=== PATIENT | female | born 1985 | race Caucasian/White ===

== ENCOUNTER 2019-12-04 13:42 | Emergency (ER) | payer SELFPAY ==
[~2019-12-04] VITALS: Ht 172.7 cm; Wt 77.1 kg
--- OUTSIDE RECORDS SUMMARY | ~2019-12-04 | XMS | Continuity of Care Document ---
Demographics + + + | Address | [address] | | | [place] [address] | + + + | Home Phone | | + + + | Preferred Language | Unknown | + + + | Marital Status | Unknown | + + + | Anglican Affiliation | Unknown | + + + | Race | Unknown | + + + | Ethnic Group | Unknown | + + + Author + + + | Author | [facility] | + + + | Organization | [facility] | + + + | Address | Unknown | + + + | Phone | Unavailable | + + + Support + + + + + | Name | Relationship | Address | Phone | + + + + + | Angelica Call | Caregiver | [address] | | | | | [place] [address] | | + + + + + | NO PCP | Caregiver | Unknown | Unavailable | + + + + + | HIRO ZAVALA | Next Of Kin | [address] 1989 | | | | | [place], [place] [address] | | + + + + + Care Team Providers + + + + | Care Web Weaver Name | Role | Phone | + + + + | NO PCP | Unavailable | Unavailable | + + + + Insurance Providers + + + + + | Payer Name | Policy Number | Subscriber Name | Relationship | + + + + + | [employer] | [id number] | JUNE ZAVALA | SAME PATIENT | + + + + + | [place] | [id number] | JUNEJR LINNSHANKAR | SAME PATIENT | | SIMON | | | | + + + + + Chief Complaint and Reason for Visit + + + | Reason for Visit | TOOTH PAIN | + + + Problems No problem information available. Medications Current Home Medications + +------+-------+-------+ + + + + | Medicati | Dose | Units | Route | Directio | Days/Qty | Instruct | Start | | on | | | | ns | | ions | Date | + +------+-------+-------+ + + + + | | | | | | | | | | CONTROL | | | | | | | | | PILL | | | | | | | | + +------+-------+-------+ + + + + | Penicill | 500 | MG | ORAL | FOUR | 10 Days | | 12/04/17 | | in V | | | | TIMES | | | | | Potassiu | | | | DAILY | | | | | m 500 MG | | | | | | | | | TABLET | | | | | | | | + +------+-------+-------+ + + + + | Venlafax | | | | | | | | | ine Hcl | | | | | | | | | (Effexor | | | | | | | | | ) 25 MG | | | | | | | | | TABLET | | | | | | | | + +------+-------+-------+ + + + + Past Home Medications + + + + + | Medication | Directions | Ordered | Status | + + + + + | Acetaminophen | | Unknown | Discontinued | | (Acetaminophen | | | | | Extra Strength) 500 | | | | | Mg Tablet Tablet, | | | | | 500-1,000 Mg Oral | | | | + + + + + | Acetaminophen With | TWICE DAILY | 06/09/11 | Discontinued | | Codeine | NEEDED | | | | (Acetaminophen-Cod | | | | | #3 Tablet) 1 Each | | | | | Tablet Tablet, 1 | | | | | Each Oral | | | | + + + + + | Bupropion Hcl | ONCE DAILY | Unknown | Discontinued | | (Wellbutrin Sr) 150 | | | | | Mg Tablet.sa | | | | | Tablet.sa, 150 Mg | | | | | Oral | | | | + + + + + | Ciprofloxacin Hcl | TWICE DAILY | Unknown | Discontinued | | 500 Mg , 500 Mg | | | | | Oral | | | | + + + + + | Citalopram | ONCE DAILY | Unknown | Discontinued | | Hydrobromide | | | | | (Celexa) 20 Mg | | | | | Tablet Tablet, 20 | | | | | Mg Oral | | | | + + + + + | Disulfiram | | Unknown | Discontinued | | (Antabuse) 250 Mg | | | | | Tablet Tablet, 250 | | | | | Mg Oral | | | | + + + + + | Fluoxetine Hcl | ONCE DAILY | Unknown | Discontinued | | (Prozac) 10 Mg | | | | | Capsule Capsule, 10 | | | | | Mg Oral | | | | + + + + + | Hydrocodone | EVERY 6 HOURS | 04/12/10 | Discontinued | | Bit/Acetaminophen | NEEDED. | | | | (Hydrocodone-Apap | | | | | 5-500 Tablet) 1 | | | | | Each Tablet Tablet, | | | | | 1-2 Tab Oral | | | | + + + + + | Hydrocodone | Q4 - 6H | Unknown | Discontinued | | Bit/Acetaminophen | | | | | (Hydrocodone/Apap | | | | | 5/325 Mg) 1 Each | | | | | Tablet Tablet, 1 Ea | | | | | Oral | | | | + + + + + | Hydrocodone | | Unknown | Discontinued | | Bit/Acetaminophen | | | | | (Lortab 7.5-500 | | | | | Tablet) 1 Each | | | | | Tablet Tablet, | | | | + + + + + | Hydrocodone | EVERY 4 HOURS | 07/30/11 | Discontinued | | Bit/Acetaminophen | NEEDED. | | | | (Vicodin 5-500 | | | | | Tablet) 1 Each | | | | | Tablet Tablet, 1-2 | | | | | Each Oral | | | | + + + + + | Hydrocodone | THREE TIMES DAILY | 11/10/10 | Discontinued | | Bit/Acetaminophen | NEEDED | | | | (Vicodin 5-500 | | | | | Tablet) 1 Each | | | | | Tablet Tablet, 1 | | | | | Each Oral | | | | + + + + + | Hydroxyzine | SEE INSTRUCT | 02/14/10 | Discontinued | | (Vistaril) 50 Mg | | | | | Cap Cap, 50 Mg Oral | | | | + + + + + | Ibuprofen (Motrin) | EVERY 6 HOURS | 05/04/13 | Discontinued | | 600 Mg Tablet | NEEDED. | | | | Tablet, 600 Mg Oral | | | | + + + + + | Ibuprofen 400 Mg | | Unknown | Discontinued | | Tablet Tablet, 400 | | | | | Mg Oral | | | | + + + + + | Lorazepam (Ativan) | DAILY NEEDED | 01/19/11 | Discontinued | | 1 Mg Tablet Tablet, | | | | | 0.5-1 Mg Oral | | | | + + + + + | Methocarbamol | THREE TIMES DAILY | 11/10/10 | Discontinued | | (Robaxin) 500 Mg | NEEDED | | | | Tablet Tablet, 500 | | | | | Mg Oral | | | | + + + + + | Methylprednisolone | DIRECTED | 11/10/10 | Discontinued | | (Medrol Dosepak) 4 | | | | | Mg Tab.ds.pk | | | | | Tab.ds.pk, 0 Mg | | | | | Oral | | | | + + + + + | Naproxen (Naprosyn) | TWICE DAILY | Unknown | Discontinued | | 500 Mg Tablet | | | | | Tablet, Oral | | | | + + + + + | Oxycodone | EVERY 12 HOURS | 05/04/13 | Discontinued | | Hcl/Acetaminophen | NEEDED | | | | (Percocet 7.5-325 | | | | | Mg Tablet) 1 Each | | | | | Tablet Tablet, 1 | | | | | Tab Oral | | | | + + + + + | Paroxetine Hcl | | Unknown | Discontinued | | (Paxil) 20 Mg | | | | | Tablet Tablet, 20 | | | | | Mg Oral | | | | + + + + + | Venlafaxine Hcl 50 | | Unknown | Discontinued | | Mg Tablet Tablet, | | | | | 50 Mg Oral | | | | + + + + + | Venlafaxine Hcl 75 | DAILY | Unknown | Discontinued | | Mg Tab.er.24 | | | | | Tab.er.24, Oral | | | | + + + + + | Zofran 8 Mg , 8 Mg | FOUR TIMES DAILY | Unknown | Discontinued | | Oral | | | | + + + + + | Zolpidem Tartrate | | Unknown | Discontinued | | (Ambien) 10 Mg | | | | | Tablet Tablet, 10 | | | | | Mg Oral | | | | + + + + + | Doxepin 10 Mg Tab | AT BEDTIME | 02/14/10 | Discontinued | | Tab, 1 Tab Oral | | | | + + + + + Social History + + + + + | Query | Response | Start Date | Stop Date | + + + + + | Smoking Status/ | Former Smoker | | | + + + + + + + + | Status | Date Recorded | + + + | Status not known | December 04, 2017 | + + + Hospital Discharge Instructions No hospital discharge instructions. Plan of Care + + + | Discharge Date | 01/16/18 | + + + | Disposition | DISCHARGE HOME ROUTINE HOME | + + + | Instructions/Education Provided | Toothache (ED) | + + + | Forms Provided | Patient Portal | | | Routine Aftercare | | | Reducing Preventable Visits | + + + | Prescriptions | See Medications Section | + + + | Referrals | NO,PCP - | + + + Functional Status + + + + | Query | Response | Date Recorded | + + + + | Weight LB: | 190 | December 04, 2017 5:24pm | + + + + | OZ: | 6.26 | December 04, 2017 5:24pm | + + + + | KG: | 86.36 | December 04, 2017 5:24pm | + + + + | HEIGHT: FT. | 5 | December 04, 2017 5:24pm | + + + + | IN. | 8.00 | December 04, 2017 5:24pm | + + + + | or CM. | 172.72 | December 04, 2017 5:24pm | + + + + Allergies, Adverse Reactions, Alerts + +---------+ + +--------+ + | Allergen | Type | Severity | Reaction | Status | Last Updated | + +---------+ + +--------+ + | SULFA | Allergy | Mild | RASH | Active | 12/04/17 | | (SULFONAMIDE | | | | | | | | | | | | | | ANTIBIOTICS) | | | | | | + +---------+ + +--------+ + Immunizations No Known History of Immunizations. Vital Signs + + + + | Vital Reading | Collection Date/Time | Result | + + + + | Blood Pressure | 12/04/17 6:00pm | 119/73 | + + + + | Temperature | 12/04/17 6:00pm | 97.8 F | + + + + | Respiratory Rate | 12/04/17 6:00pm | 14 | + + + + | Pulse Rate | 1618 6:00pm | 88 | + + + + | Bedside Pulse Oximetry | 12/04/17 6:00pm | 92 | + + + + | Height | 12/04/17 5:24pm | 5 ft 8 in | + + + + | Height | 1618 5:24pm | 172.72 cm | + + + + | Weight | 18 5:24pm | 190 lb | + + + + | Weight | 12/04/17 5:24pm | 86.36 kg | + + + + | Body Mass Index | 12/04/17 5:24pm | 28.9 kg/m2 | + + + + Results No known relevant diagnostic tests, laboratory data and/or discharge summary. Procedures No Known History of Procedures. Encounters + + + + + + | Encounter | Location | Arrival/Admit | Discharge/Depar | Attending | | | | Date | t Date | Provider | + + + + + + | Departed | Michele | 12/04/17 4:53pm | 12/04/17 6:35pm | Angelica Call | | [facility] | | | | + + + + + +"
== END 2019-12-04 15:20 | disposition home or self-care (01) ==
LOC: ED 13:42
DX: Z53.21 Procedure and treatment not carried out due to patient leaving prior to being seen by health care provider (principal)